=== PATIENT | female | born 1935 | race Two or more races ===

== ENCOUNTER 2022-05-30 12:43 | Inpatient (IN) | payer MEDICARE, OTHER ==
[~2022-05-30] VITALS: Ht 144.8 cm; Wt 51.3 kg
--- NOTE | 2022-05-30 12:50 | NUR ---
TO ER BED 11. SHANIA WATSON C/O LOWER ABDOMINAL PAIN SINCE LAST NIGHT. ATTACHED TO MONITOR, VITALS ARE WITHIN NORMAL LIMITS, NO RESP DISTRESS NOTED ON ROOMA IR. PROVIDED WITH WARM BLANKET FOR COMFORT. AWAITIN D ORDERS.
--- NOTE | 2022-05-30 12:55 | NUR ---
IV ESTABLIHSED L AC 20G. LABS DRAWN AND COLLECTED AT BEDSIDE.
[2022-05-30] MEDS ORDERED: SENN-261 PO (13:07)
[2022-05-30] MEDS ORDERED: ACET-868 PO (13:07)
[2022-05-30] MEDS ORDERED: POLY15DR40 EACHEYE (13:07)
[2022-05-30] MEDS ORDERED: DOCU-141 PO (13:07)
[2022-05-30] MEDS ORDERED: CLON0.1T PO (13:07)
[2022-05-30] MEDS ORDERED: LISI40TA13 PO (13:07)
[2022-05-30] MEDS ORDERED: AMLO-212 PO (13:07)
[2022-05-30] MEDS ORDERED: MULT-447 PO (13:07)
[2022-05-30 13:10] LABS: BASOPHILS % (AUTO) 0.2 % (0.0-2.0); EOSINOPHILS % (AUTO) 1.4 % (0.0-6.0); HEMATOCRIT 40 % (33-45); HEMOGLOBIN 13.6 g/dL (11.5-14.8); LYMPHOCYTES # (AUTO) 1.3 K/uL (0.8-4.8); LYMPHOCYTES % (AUTO) 10.5 % (20.0-44.0); MEAN CORPUSCULAR HGB CONC 34 g/dl (31.0-36.0); MEAN CORPUSCULAR VOLUME 94 fL (82-100); MONOCYTES # (AUTO) 1.4 K/uL (0.1-1.30); MONOCYTES % (AUTO) 10.7 % (2.0-12.0); NEUTROPHILS # (AUTO) 9.9 K/uL (1.8-8.9); NEUTROPHILS % (AUTO) 77.2 % (43.0-81.0); PLATELET COUNT (AUTO) 303 K/uL (150-450); RED BLOOD CELL COUNT(AUTO) 4.25 MIL/uL (4.0-5.2); WHITE BLOOD COUNT (AUTO) 12.8 K/uL (4.3-11.0)
[2022-05-30 14:28] LABS: CALCIUM, SERUM 9.3 mg/dL (8.5-10.1); CARBON DIOXIDE 29 mmol/L (21-32); CHLORIDE 98 mmol/L (98-107); CREATININE 0.4 mg/dL (0.6-1.3); GLUCOSE 111 mg/dL (74-106); POTASSIUM 3.5 mmol/L (3.5-5.1); SODIUM SERUM 134 mmol/L (136-145); UREA NITROGEN, BLOOD 13 mg/dL (7-18)
[2022-05-30] MEDS ORDERED: MORPHINE SULFATE INJ 2 MG/ML DISP.SYRIN ONE (14:29)
[2022-05-30] MEDS ORDERED: PIPERACILLIN /TAZOBACTAM 3.375 G in IV D5W 50 ML IV ONE (14:30)
[2022-05-30] MEDS ORDERED: MORPHINE SULFATE INJ 2 MG/ML DISP.SYRIN IV ONE (14:30)
--- NOTE | 2022-05-30 14:32 | NUR ---
CALLED NURSING SUP REGARDING PT BED
--- NOTE | 2022-05-30 14:38 | NUR ---
COVID TEST COLLECTED AND SENT
[2022-05-30 15:17] LABS: ALBUMIN 3.8 g/dL (3.4-5.0)
[2022-05-30 15:37] LABS: ALANINE AMINOTRANSFERASE 19 U/L (12-78); ALKALINE PHOSPHATASE 102 U/L (46-116); ASPARTATE AMINOTRANSFERASE 19 U/L (15-37); BILIRUBIN,DIRECT 0.2 mg/dL (0.0-0.2); BILIRUBIN,TOTAL 0.8 mg/dL (0.2-1.0); TOTAL PROTEIN, SERUM 7.2 g/dL (6.4-8.2)
--- NOTE | 2022-05-30 15:52 | NUR ---
room 310-1
--- NOTE | 2022-05-30 15:57 | NUR ---
REPORT GIVEN TO KEELY FOR BANDAR
--- NOTE | 2022-05-30 15:57 | NUR ---
AWAITING COVID RESULT TO TRANFER PT UP TO THE FLOOR
[2022-05-30] MEDS ORDERED: MAGNESIUM HYDROXIDE 30 ML UDC PO PRN (16:00)
[2022-05-30] MEDS ORDERED: ONDANSETRON HCL/PF 4 MG/2 ML VIAL IVP PRN (16:00)
[2022-05-30] MEDS ORDERED: MAG HYDROX/AL HYDROX/SIMETH 30 ML UDC PO PRN (16:00)
[2022-05-30] MEDS ORDERED: ACETAMINOPHEN 325 MG TABLET PO PRN (16:00)
[2022-05-30] MEDS ORDERED: ZOLPIDEM TARTRATE 5 MG TABLET PO PRN (16:00)
[2022-05-30] MEDS ORDERED: Z GUARD REMEDY 4 OZ OINT TP PRN (16:00)
--- NOTE | 2022-05-30 16:28 | NUR ---
DAUGHTER HUMBETRO LOIDA [phone]
--- NOTE | 2022-05-30 17:01 | NUR ---
PT TRANSFERED TO [facility] FLOOR IN STABLE CONDITION
[2022-05-30] MEDS: DOCUSATE SODIUM 100 MG CAPSULE PO SCH (17:29)
[2022-05-30] MEDS: LISINOPRIL (20MG) 20 MG TABLET PO SCH (17:30)
[2022-05-30] MEDS: AMLODIPINE BESYLATE 5 MG TABLET PO SCH (17:30)
[2022-05-30] MEDS: CLONIDINE HCL 0.1 MG TABLET PO SCH (17:30)
[2022-05-30] MEDS: HYDROCODONE/APAP 5/325MG TABLET PO PRN (17:31)
--- NOTE | 2022-05-30 17:50 | NUR ---
RN ADMITTING NOTES PATIENT ARRIVED TO UNIT ACCOMPANIED BY 1 ED STAFF [facility]IA [facility]. PATIENT HELPED INTO BED, A/Ox3-4 TONGAN SPEAKING. STABLE ON ROOM AIR NO S/S OF RESPIRATORY DISTRESS. IV ACCESS ON LAC #20G, INTACT AND PATENT. DAUGHTER AT BEDSIDE. V/S TAKEN, STABLE. FULL BODY ASSESSMENT DONE: CARDIAC ALL HEART SOUNDS PRESENT AND WNL, RESPIRATORY LUNGS CLEAR,, GI/ CONTINENT, ABDOMINAL TENDER, SOME PAIN NOTED WHEN PRESSED DOWN ON ABDOMEN, SKIN IS INTACT. PATIENT ORIENTED TO ROOM AND CALL LIGHT. WILL CONTINUE TO MONITOR FOR ANY BANDAR. CHARGE NURSE AND MD AWARE OF ADMISSION.
[2022-05-30] MEDS ORDERED: PIPERACILLIN /TAZOBACTAM 3.375 G in IV D5W 50 ML IV SCH (18:00)
[2022-05-30 18:09] VITALS: BP 135/83
--- NOTE | 2022-05-30 18:53 | NUR ---
MS RN CLOSING NOTES PATIENT IN BED RESTING, STABLE ON ROOM AIR NO S/S OF RESPIRATORY DISTRESS OR DISCOMFORT. PATIENT IS A/O x3-4, [place] SPEAKING. IV ACCESS LAC #20G. INTACT AND PATENT. NO S/S OF CARDIAC DISTRESS OR DISCOMFORT. SKIN INTACT. CONTINENT USES BEDPAN OR DIAPER. ALL PRESCRIBED MEDICATION ADMINISTERED. SAFETY MEASURES MAINTAINED: BED IN LOWEST POSITION AND LOCKED, SIDE RAILS UP x2, CALL LIGHT WITHIN REACH, BED ALARM ON, HOB ELEVATED. WILL ENDORSE TO NEXT SHIFT ANY BANDAR.
--- NOTE | 2022-05-30 19:41 | NUR ---
RN OPENING NOTE PATIENT IN BED AWAKE. A/OX3. NO S/S OF DISTRESS, BREATHING W/O DIFFICULTY ON ROOM AIR. LAC #20 SL INTACT AND PATENT. SAFETY MEASURES IN PLACE: BED LOCKED AND AT LOWEST POSITION, RAILS UP X2, CALL ALMONTE WITHIN REACH. WILL CONTINUE TO MONITOR PATIENT.
[2022-05-30 20:18] LABS: LIPASE 52 U/L (73-393)
[2022-05-30 20:38] VITALS: BP_SYST 102; BP_SYST 98; BP_DIAS 60
[2022-05-30] MEDS: SENNOSIDES 8.6 MG TABLET PO SCH (21:35)
[2022-05-30] MEDS: PIPERACILLIN /TAZOBACTAM 3.375 G in IV D5W 100 ML IV SCH (23:12)
[2022-05-31 06:37] LABS: BASOPHILS % (AUTO) 0.5 % (0.0-2.0); EOSINOPHILS % (AUTO) 1.1 % (0.0-6.0); HEMATOCRIT 36 % (33-45); LYMPHOCYTES # (AUTO) 1.4 K/uL (0.8-4.8); LYMPHOCYTES % (AUTO) 13.6 % (20.0-44.0); MEAN CORPUSCULAR HGB CONC 36 g/dl (31.0-36.0); MEAN CORPUSCULAR VOLUME 93 fL (82-100); MONOCYTES # (AUTO) 1.6 K/uL (0.1-1.30); MONOCYTES % (AUTO) 15.4 % (2.0-12.0); NEUTROPHILS # (AUTO) 7.2 K/uL (1.8-8.9); NEUTROPHILS % (AUTO) 69.4 % (43.0-81.0); PLATELET COUNT (AUTO) 269 K/uL (150-450); RED BLOOD CELL COUNT(AUTO) 3.91 MIL/uL (4.0-5.2); WHITE BLOOD COUNT (AUTO) 10.3 K/uL (4.3-11.0)
--- NOTE | 2022-05-31 06:48 | NUR ---
RN CLOSING NOTE PATIENT ASLEEP IN BED. A/OX3. NO S/S OF DISTRESS, BREATHING W/O DIFFICULTY ON ROOM AIR. RAC #20 SL INTACT AND PATENT. SAFETY MEASURES IN PLACE: BED LOCKED AND AT LOWEST POSITION, RAILS UP X2, CALL ALMONTE WITHIN REACH. WILL ENDORSE TO NEXT SHIFT FOR CONTINUITY OF CARE.
[2022-05-31 06:59] LABS: ALANINE AMINOTRANSFERASE 18 U/L (12-78); ALBUMIN 3.3 g/dL (3.4-5.0); ALKALINE PHOSPHATASE 84 U/L (46-116); ASPARTATE AMINOTRANSFERASE 13 U/L (15-37); BILIRUBIN,TOTAL 1.1 mg/dL (0.2-1.0); CALCIUM, SERUM 8.6 mg/dL (8.5-10.1); CARBON DIOXIDE 29 mmol/L (21-32); CHLORIDE 98 mmol/L (98-107); CREATININE 0.5 mg/dL (0.6-1.3); GLUCOSE 97 mg/dL (74-106); POTASSIUM 3.4 mmol/L (3.5-5.1); SODIUM SERUM 133 mmol/L (136-145); TOTAL PROTEIN, SERUM 6.6 g/dL (6.4-8.2); UREA NITROGEN, BLOOD 16 mg/dL (7-18)
--- NOTE | 2022-05-31 07:30 | NUR ---
RN OPENING NOTE RECEIVED PATIENT IN BED AWAKE. A/OX3. ROOM AIR WITH NO SOB OR DISTRESS NOTED , NO C/O OF PAIN AND DISCOMFORT NOTED AT THIS TIME . LAC #20 SL INTACT AND PATENT. SAFETY MEASURES IN PLACE: BED LOCKED AND AT LOWEST POSITION, RAILS UP X2, CALL ALMONTE WITHIN REACH. WILL CONTINUE TO MONITOR PATIENT.
[2022-05-31] MEDS: PIPERACILLIN /TAZOBACTAM 3.375 G in IV D5W 100 ML IV SCH ×3 (08:21→23:22)
[2022-05-31] MEDS: PANTOPRAZOLE 40 MG TABLET.DR PO SCH (08:24)
[2022-05-31 09:40] LABS: BASOPHILS % (MANUAL) 0 % (0.0-2.0); EOSINOPHILS % (MANUAL) 1 % (0-4); LYMPHOCYTES % (MANUAL) 11 % (16-48); MONOCYTES % (MANUAL) 18 % (0-11.0); NEUTROPHILS % (MANUAL) 70 (42-76)
[2022-05-31] MEDS ORDERED: POTASSIUM CHLORIDE 20 MEQ TAB.PRT.SR PO SCH (10:00)
[2022-05-31] MEDS: AMLODIPINE BESYLATE 5 MG TABLET PO SCH ×2 (10:01→18:11)
[2022-05-31] MEDS: LISINOPRIL (20MG) 20 MG TABLET PO SCH ×2 (10:01→18:12)
[2022-05-31] MEDS: DOCUSATE SODIUM 100 MG CAPSULE PO SCH ×2 (10:01→18:10)
[2022-05-31] MEDS: CLONIDINE HCL 0.1 MG TABLET PO SCH ×2 (10:02→18:12)
[2022-05-31] MEDS ORDERED: POTASSIUM CHLORIDE 10 MEQ TABLET.SA PO ONE (13:00)
--- NOTE | 2022-05-31 14:15 | NUR ---
RN NOTES PATIENT WENT TO A PROCEDURE FOR NUCLEAR MEDICINE HEPATOBILIARY SCAN
--- NOTE | 2022-05-31 17:00 | NUR ---
RN NOTES PATIENT WENT TO A PROCEDURE AGAIN FOR REPEAT NM HEPATOBILIARY SCAN
[2022-05-31] MEDS: IV D5/0.45 NACL 1,000 ML IV PRN (17:12)
--- NOTE | 2022-05-31 18:54 | NUR ---
MS RN CLOSING NOTES PATIENT ON BED AWAKE. A/OX3. ROOM AIR WITH NO SOB OR DISTRESS NOTED , NO C/O OF PAIN AND DISCOMFORT NOTED AT THIS TIME . LAC #20 SL INTACT AND PATENT. DUE MEDS AND IV ATB GIVEN ORDERED , PROCEDURE DONE TODAY NUCLEAR MEDICINE HEPATOBILIARY SCAN , SAFETY MEASURES IN PLACE: BED LOCKED AND AT LOWEST POSITION, RAILS UP X 2 ENDORSED TO NEXT SHIFT .
--- NOTE | 2022-05-31 19:15 | NUR ---
MS RN OPENING NOTES: RECEIVED PATIENT IN BED, ASLEEP, EASILY AROUSABLE. NO S/S OF DISTRESS NOTED. NO COMPLAIN OF PAIN. CALL LIGHT WITHIN REACH. BED ALARM ON. BED IN LOWEST AND LOCKED POSITION. HOB ELEVATED AT ALL TIMES. HIDA SCAN DONE TODAY.
[2022-05-31 20:00] VITALS: BP 94/70
[2022-05-31] MEDS: SENNOSIDES 8.6 MG TABLET PO SCH (21:30)
[2022-05-31] MEDS: ACETAMINOPHEN 325 MG TABLET PO PRN (21:30)
[2022-06-01] MEDS: PIPERACILLIN /TAZOBACTAM 3.375 G in IV D5W 100 ML IV SCH ×3 (06:18→23:25)
[2022-06-01 06:42] LABS: BASOPHILS # (AUTO) 0.1 K/uL (0.0-0.2); BASOPHILS % (AUTO) 0.6 % (0.0-2.0); EOSINOPHILS % (AUTO) 1.9 % (0.0-6.0); HEMATOCRIT 38 % (33-45); LYMPHOCYTES # (AUTO) 1.4 K/uL (0.8-4.8); LYMPHOCYTES % (AUTO) 11.4 % (20.0-44.0); MEAN CORPUSCULAR HGB CONC 34 g/dl (31.0-36.0); MEAN CORPUSCULAR VOLUME 95 fL (82-100); MONOCYTES # (AUTO) 1.7 K/uL (0.1-1.30); MONOCYTES % (AUTO) 13.7 % (2.0-12.0); NEUTROPHILS # (AUTO) 8.8 K/uL (1.8-8.9); NEUTROPHILS % (AUTO) 72.4 % (43.0-81.0); PLATELET COUNT (AUTO) 267 K/uL (150-450); RED BLOOD CELL COUNT(AUTO) 4.01 MIL/uL (4.0-5.2); WHITE BLOOD COUNT (AUTO) 12.2 K/uL (4.3-11.0)
[2022-06-01 06:57] LABS: CALCIUM, SERUM 8.7 mg/dL (8.5-10.1); CARBON DIOXIDE 26 mmol/L (21-32); CHLORIDE 100 mmol/L (98-107); CREATININE 0.5 mg/dL (0.6-1.3); GLUCOSE 106 mg/dL (74-106); MAGNESIUM 2.1 mg/dL (1.8-2.4); POTASSIUM 3.3 mmol/L (3.5-5.1); SODIUM SERUM 134 mmol/L (136-145); UREA NITROGEN, BLOOD 12 mg/dL (7-18)
--- NOTE | 2022-06-01 07:30 | NUR ---
MS RN OPENING NOTE RECEIVED PATIENT IN BED AWAKE , POLISH SPEAKING , A/OX3. ROOM AIR WITH NO SOB OR DISTRESS NOTED , NO C/O OF PAIN AND DISCOMFORT NOTED AT THIS TIME . LAC #20 SL INTACT AND PATENT AND WITH ON GOING IVATB OF ZOSYN 3.375 MG /100 ML RUNNING AT 25ML /HOUR , SAFETY MEASURES IN PLACE, BED IN LOWEST POSITION , SIDE RAILS UP X2, CALL ALMONTE WITHIN REACH. WILL CONTINUE TO MONITOR PATIENT.
[2022-06-01 08:00] VITALS: BP 133/70
[2022-06-01] MEDS: PANTOPRAZOLE 40 MG TABLET.DR PO SCH (08:31)
[2022-06-01] MEDS: LISINOPRIL (20MG) 20 MG TABLET PO SCH ×2 (09:13→17:30)
[2022-06-01] MEDS: AMLODIPINE BESYLATE 5 MG TABLET PO SCH ×2 (09:14→17:29)
[2022-06-01] MEDS: DOCUSATE SODIUM 100 MG CAPSULE PO SCH ×2 (09:14→17:30)
[2022-06-01] MEDS: CLONIDINE HCL 0.1 MG TABLET PO SCH ×2 (09:14→17:29)
[2022-06-01] MEDS ORDERED: POTASSIUM CHLORIDE 20 MEQ TAB.PRT.SR PO SCH (10:00)
[2022-06-01 16:08] VITALS: BP 144/82
--- NOTE | 2022-06-01 19:07 | NUR ---
MS RN CLOSING NOTE Patient in bed, resting comfortably. A/O x 3, Uzbek speaking, able to make needs known. On room air, breathing evenly and unlabored. No SOB or s/s of distress noted. IV access on LAC currently infusing Zosyn at 25 ml/hr. IV fluid is D5 1/2 NS at 75 ml/hr to infuse after IV antibiotic. Clear liquid diet maintained. All needs attended to. Due meds given. Safety measures maintained: bed in low, locked position; siderails up x 2; call light within reach. Will endorse to film processing shift supervisor nurse for BANDAR.
--- NOTE | 2022-06-01 19:15 | NUR ---
RN opening notes Pt is resting in bed comfortably. Pt is alert and orientedX3. Pt speaks Nicaraguan and able to make needs known. On room air. No S/S of distress noted. Iv site at LAc# 20 is clean, intact and infusing well abx zosyn. Safety precautions is maintained. Bed at low position, brakes locked, side rails upX3, hob elevated, bed alarm is on and call light is within reach. Will continue to monitor.
[2022-06-01 20:00] VITALS: BP 101/67
[2022-06-01] MEDS: SENNOSIDES 8.6 MG TABLET PO SCH (21:14)
[2022-06-02] MEDS: PIPERACILLIN /TAZOBACTAM 3.375 G in IV D5W 100 ML IV SCH ×3 (06:05→22:50)
[2022-06-02] MEDS: IV D5/0.45 NACL 1,000 ML IV PRN (06:06)
--- NOTE | 2022-06-02 06:40 | NUR ---
RN closing notes Pt is resting in bed comfortably. Pt is alert and orientedX3. Pt speaks [place] Citizen and able to make needs known. On room air. No S/S of distress noted. VS is stable. Routine meds were given as ordered. Iv site at LAc# 20 is clean, intact and infusing well abx zosyn. kept Pt clean, dry and comfortable. Safety precautions is maintained. Bed at low position, brakes locked, side rails upX3, hob elevated, bed alarm is on and call light is within reach. Will endorse to am nurse for BANDAR.
[2022-06-02 06:49] LABS: CALCIUM, SERUM 8.5 mg/dL (8.5-10.1); CARBON DIOXIDE 27 mmol/L (21-32); CHLORIDE 100 mmol/L (98-107); CREATININE 0.4 mg/dL (0.6-1.3); GLUCOSE 117 mg/dL (74-106); POTASSIUM 3.3 mmol/L (3.5-5.1); SODIUM SERUM 134 mmol/L (136-145); UREA NITROGEN, BLOOD 6 mg/dL (7-18)
--- NOTE | 2022-06-02 07:19 | NUR ---
MS RN OPENING NOTES RECEIVED PATIENT AWAKE IN BED. PATIENT IS ALERT AND ORIENTED TIMES 4. CITIZEN OF [place] SPEAKING. NO PAIN NOTED. NO SOB NOTED. NO DISTRESS NOTED. BREATHING EVEN AND UNLABORED. ON ROOM AIR TOLERATING WELL. IV ACCESS LAC # 20 INTACT AND PATENT. ON IV HYDRATION OF D51/2 NS AT 75 ML/HR. ALL SAFETY MEASURES IN PLACE. BED LOCKED IN THE LOWEST POSITION. CALL LIGHT AND TABLE IN EASY REACH. SIDE RAILS UP TIMES 2. WILL CONTINUE TO MONITOR.
[2022-06-02] MEDS: PANTOPRAZOLE 40 MG TABLET.DR PO SCH (07:42)
[2022-06-02 08:00] VITALS: BP 125/50
[2022-06-02] MEDS: DOCUSATE SODIUM 100 MG CAPSULE PO SCH ×2 (08:03→16:20)
[2022-06-02] MEDS: LISINOPRIL (20MG) 20 MG TABLET PO SCH ×2 (08:03→16:21)
[2022-06-02] MEDS: CLONIDINE HCL 0.1 MG TABLET PO SCH ×2 (08:04→16:21)
[2022-06-02] MEDS: AMLODIPINE BESYLATE 5 MG TABLET PO SCH ×2 (08:04→16:20)
[2022-06-02] MEDS ORDERED: POTASSIUM CHLORIDE 20 MEQ TAB.PRT.SR PO SCH (11:00)
[2022-06-02] MEDS: HYDROCODONE/APAP 5/325MG TABLET PO PRN (14:17)
[2022-06-02 16:00] VITALS: BP 116/55
--- NOTE | 2022-06-02 18:48 | NUR ---
MS RN CLOSING NOTES PATIENT AWAKE IN BED. PATIENT IS ALERT AND ORIENTED TIMES 4. DANISH SPEAKING. NO PAIN NOTED. NO SOB NOTED. NO DISTRESS NOTED. BREATHING EVEN AND UNLABORED. ON ROOM AIR TOLERATING WELL. IV ACCESS LAC # 20 INTACT AND PATENT. ON IV HYDRATION OF D51/2 NS AT 75 ML/HR. ALL DUE MEDS GIVEN ORDERED. ALL SAFETY MEASURES IN PLACE. BED LOCKED IN THE LOWEST POSITION. CALL LIGHT AND TABLE IN EASY REACH. SIDE RAILS UP TIMES 2. NPO STARTING MIDNIGHT. WILL ENDOTRSE FOR BANDAR..
[2022-06-02 20:00] VITALS: BP 128/75
[2022-06-02] MEDS: SENNOSIDES 8.6 MG TABLET PO SCH (22:17)
[2022-06-03] VITALS (10 sets, daily range): BP systolic 136–166; BP diastolic 85–101
[2022-06-03] MEDS: IV D5/0.45 NACL 1,000 ML IV PRN ×2 (02:21→18:15)
[2022-06-03 06:31] LABS: BASOPHILS % (AUTO) 0.4 % (0.0-2.0); EOSINOPHILS % (AUTO) 1.8 % (0.0-6.0); HEMATOCRIT 41 % (33-45); HEMOGLOBIN 14.8 g/dL (11.5-14.8); LYMPHOCYTES # (AUTO) 1.4 K/uL (0.8-4.8); LYMPHOCYTES % (AUTO) 12.9 % (20.0-44.0); MEAN CORPUSCULAR HGB CONC 36 g/dl (31.0-36.0); MEAN CORPUSCULAR VOLUME 91 fL (82-100); MONOCYTES # (AUTO) 0.8 K/uL (0.1-1.30); NEUTROPHILS # (AUTO) 8.1 K/uL (1.8-8.9); NEUTROPHILS % (AUTO) 76.9 % (43.0-81.0); PLATELET COUNT (AUTO) 348 K/uL (150-450); RED BLOOD CELL COUNT(AUTO) 4.51 MIL/uL (4.0-5.2); WHITE BLOOD COUNT (AUTO) 10.5 K/uL (4.3-11.0)
[2022-06-03] MEDS: PIPERACILLIN /TAZOBACTAM 3.375 G in IV D5W 100 ML IV SCH ×4 (06:57→23:07)
[2022-06-03 07:17] LABS: ALANINE AMINOTRANSFERASE 24 U/L (12-78); ALBUMIN 3.4 g/dL (3.4-5.0); ALKALINE PHOSPHATASE 106 U/L (46-116); ASPARTATE AMINOTRANSFERASE 15 U/L (15-37); BILIRUBIN,TOTAL 0.8 mg/dL (0.2-1.0); CALCIUM, SERUM 9.3 mg/dL (8.5-10.1); CARBON DIOXIDE 26 mmol/L (21-32); CHLORIDE 100 mmol/L (98-107); CREATININE 0.4 mg/dL (0.6-1.3); GLUCOSE 124 mg/dL (74-106); POTASSIUM 3.2 mmol/L (3.5-5.1); SODIUM SERUM 136 mmol/L (136-145); TOTAL PROTEIN, SERUM 7.9 g/dL (6.4-8.2); UREA NITROGEN, BLOOD 3 mg/dL (7-18)
[2022-06-03] MEDS: DOCUSATE SODIUM 100 MG CAPSULE PO SCH ×2 (09:06→17:00)
[2022-06-03] MEDS: PANTOPRAZOLE 40 MG TABLET.DR PO SCH (09:06)
[2022-06-03] MEDS: CLONIDINE HCL 0.1 MG TABLET PO SCH ×2 (09:06→17:00)
[2022-06-03] MEDS: AMLODIPINE BESYLATE 5 MG TABLET PO SCH ×2 (09:07→17:00)
[2022-06-03] MEDS: LISINOPRIL (20MG) 20 MG TABLET PO SCH ×2 (09:07→17:00)
[2022-06-03] MEDS: POTASSIUM CL. PREMIX PERIPHER. 50 ML IV SCH ×4 (11:23→18:04)
[2022-06-03] MEDS ORDERED: LIDOCAINE 1% INJ 50 ML MDV IJ ONE (14:04)
--- NOTE | 2022-06-03 14:30 | NUR ---
LAVINIA NOTES PT RECEIVED IN OR FOR CHOLECYSTOMY TUBE PLACEMENT . Addendum: 06/03/22 at 1707 by JANEL PALMER RN CORRECTION RECEIVED TIME TO OR 1630
[2022-06-03] MEDS ORDERED: IOHEXOL-300 100 ML VIAL IV ONE (14:45)
[2022-06-03] MEDS ORDERED: NALOXONE PREFILLED SYRINGE 2 MG/2 ML SYRINGE IV PRN (15:00)
[2022-06-03] MEDS ORDERED: FLUMAZENIL 0.5 MG VIAL IV PRN (15:00)
[2022-06-03] MEDS ORDERED: FENTANYL PF 250MCG/5ML AMPUL IV PRN (15:00)
[2022-06-03] MEDS ORDERED: MIDAZOLAM HCL 2 MG/2ML VIAL IV PRN (15:00)
--- NOTE | 2022-06-03 16:10 | NUR ---
RN NOTES PATIENT TRANSFERRED DOWN VIA BED TO OR FOR PROCEDURE.
--- NOTE | 2022-06-03 16:40 | NUR ---
RN NOTES ZOSYN 3.375G IV GIVEN IN OR PER RADIOLOGIST ORDER .UNABLE TO SCAN , PHARMACY NOTIFIED .
--- NOTE | 2022-06-03 17:34 | NUR ---
HEEL BUILDER MACHINE NOTED PT STABLE, VSS WNL, DRAIN TO THE RIGHT UPPER QUADRANT WITH 200 ML OF WHITISH , CLOUDY DRAINAGE INTACT, PT TRANSFERED TO ROOM 310-1 , IN STABLE CONDITION, REPORT GIVEN TO NAIMA KATE FOR CONTINUITY OF CARE .
--- NOTE | 2022-06-03 17:35 | NUR ---
RN NOTES RECEIVED PATIENT FROM OR NURSE IN STABLE CONDITION. VSS. DRAIN AT RIGHT UPPER QUADRANT WITH 200 ML OF DRAINAGE NOTED AT THIS TIME, INTACT. PATIENT DENIES HAVING PAIN. ON RA WITH BREATHING EVEN AND UNLABORED. SAFETY PRECAUTIONS IN PLACE. WILL CONTINUE TO MONITOR
--- NOTE | 2022-06-03 19:22 | NUR ---
RN NOTES REPORT GIVEN TO HOME CARE PROVIDER NURSE FOR BANDAR
--- NOTE | 2022-06-03 19:30 | NUR ---
MS RN OPENING NOTE RECEIVED PATIENT IN BED, NORWEGIAN SPEAKING. SEEMS CONFUSED. NO S/S OF APPARENT DISTRESS IN ROOM AIR. CHOLECYSTECTOMY DRAIN NOTED IN PLACE. R. FA #22 G RUNNING D5 1/2 NS @75MLS/HR. SAFETY IN PLACE. WILL CONTINUE WITH PATIENT'S PLAN OF CARE.
[2022-06-03] MEDS: MORPHINE SULFATE INJ 2 MG/ML DISP.SYRIN IV PRN (19:56)
[2022-06-03] MEDS: SENNOSIDES 8.6 MG TABLET PO SCH (21:48)
[2022-06-04] MEDS ORDERED: ASPIRIN 81 MG TAB.CHEW PO ONE (01:00)
[2022-06-04] MEDS: MORPHINE SULFATE INJ 2 MG/ML DISP.SYRIN IV PRN (01:46)
--- NOTE | 2022-06-04 01:59 | NUR ---
MS RN NOTE PATIENT VERY RESTLESS AND CONFUSED, PULLING LINES AND ALMOST PULLED OUT THE DRAIN IN PLACE. MADE TRAVEL COUNSELOR TONY PETERSON AWARE AND ORDERED SOFT BOTH WRIST RESTRAINTS FOR PATIENT SAFETY. WILL MONITOR.
[2022-06-04] MEDS: PIPERACILLIN /TAZOBACTAM 3.375 G in IV D5W 100 ML IV SCH ×3 (06:19→22:29)
[2022-06-04 06:37] LABS: CALCIUM, SERUM 8.8 mg/dL (8.5-10.1); CARBON DIOXIDE 25 mmol/L (21-32); CHLORIDE 100 mmol/L (98-107); CREATININE 0.6 mg/dL (0.6-1.3); GLUCOSE 160 mg/dL (74-106); POTASSIUM 3.4 mmol/L (3.5-5.1); SODIUM SERUM 135 mmol/L (136-145); UREA NITROGEN, BLOOD 7 mg/dL (7-18)
--- NOTE | 2022-06-04 07:00 | NUR ---
MS RN OPENING NOTES PATIENT LAYING IN BED, A/O X 1, CONFUSED. TOLERATING WELL ON ROOM AIR WITH NO S/S RESPIRATORY DISTRESS. CHOLECYSTECTOMY DRAIN IN PLACE DRAINING FLUID TO GRAVITY. R FA # 22 G IV CLEAN, INTACT, AND INFUSING D5 1/2 NS @ 75 ML/HR. BILATERAL SOFT WRIST RESTRAINTS IN PLACE WITH CIRCULATION, MOTOR FUNCTION, AND SENSATION INTACT DISTALLY X 2. SAFETY MEASURES IN PLACE: BED IN LOWEST LOCKED POSITION, SIDE RAILS UP X 2, CALL LIGHT WITHIN REACH. WILL CONTINUE TO MONITOR.
--- NOTE | 2022-06-04 07:32 | NUR ---
RN CLOSING NEEDS ATTENDED, ENDORSED TO MORNING SHIFT RN FOR CONTINUITY OF CARE.
[2022-06-04 08:00] VITALS: BP 113/67
[2022-06-04] MEDS: PANTOPRAZOLE 40 MG TABLET.DR PO SCH (08:06)
[2022-06-04] MEDS: LISINOPRIL (20MG) 20 MG TABLET PO SCH ×2 (09:00→17:41)
[2022-06-04] MEDS ORDERED: ASPIRIN 81 MG TAB.CHEW PO SCH (09:00)
[2022-06-04] MEDS: CLONIDINE HCL 0.1 MG TABLET PO SCH ×2 (09:00→17:00)
[2022-06-04] MEDS: AMLODIPINE BESYLATE 5 MG TABLET PO SCH ×2 (09:07→17:41)
[2022-06-04] MEDS: DOCUSATE SODIUM 100 MG CAPSULE PO SCH ×2 (09:07→17:41)
[2022-06-04] MEDS ORDERED: MIDAZOLAM HCL 2 MG/2ML VIAL IV ONE (10:21)
[2022-06-04] MEDS ORDERED: FENTANYL PF 100MCG/2ML AMPUL IV ONE (10:21)
[2022-06-04] MEDS ORDERED: POTASSIUM CHLORIDE 20 MEQ TAB.PRT.SR PO SCH (11:00)
[2022-06-04] MEDS: ACETAMINOPHEN 325 MG TABLET PO PRN (13:13)
--- NOTE | 2022-06-04 13:22 | NUR ---
650 MG PRN TYLENOL PO ADMINISTERED FOR ELEVATED TEMP (99.3 F)
[2022-06-04 16:00] VITALS: BP 135/75
[2022-06-04] MEDS: ENOXAPARIN SODIUM 40 MG/0.4 ML DISP.SYRIN SQ SCH (17:39)
--- NOTE | 2022-06-04 19:00 | NUR ---
MS RN CLOSING NOTES PATIENT LAYING IN BED, A/O X 1, CONFUSED. TOLERATING WELL ON ROOM AIR WITH NO S/S RESPIRATORY DISTRESS. CHOLECYSTECTOMY DRAIN IN PLACE DRAINING FLUID TO GRAVITY, 300 ML OUTPUT DURING SHIFT. R FA # 22 G IV CLEAN, INTACT, AND INFUSING D5 1/2 NS @ 75 ML/HR. BILATERAL SOFT WRIST RESTRAINTS IN PLACE WITH CIRCULATION, MOTOR FUNCTION, AND SENSATION INTACT DISTALLY X 2. SAFETY MEASURES IN PLACE: BED IN LOWEST LOCKED POSITION, SIDE RAILS UP X 2, CALL LIGHT WITHIN REACH. ALL NEEDS MET. WILL ENDORSE TO DOOR BUILDER FOR BANDAR.
[2022-06-04 20:00] VITALS: BP 147/80
--- NOTE | 2022-06-04 20:13 | NUR ---
RECEIVED PATIENT IN BED, ALERT/ORIENTED X1, MALAWIAN SPEAKING ONLY, NOT IN DISTRESS, STABLE ON ROOM AIR, NO COMPLAIN OF PAIN, TOLERATING CLEAR LIQUID DIET, RUQ DRAIN INTACT, DRAINING GREENISH LIQUID. BILATERAL WRIST RESTRAINTS IN PLACE. KEPT SAFE, WILL CONTINUE TO MONITOR.
[2022-06-04] MEDS: SENNOSIDES 8.6 MG TABLET PO SCH (22:27)
[2022-06-05] MEDS: HYDROCODONE/APAP 5/325MG TABLET PO PRN ×2 (03:41→16:46)
[2022-06-05] MEDS: IV D5/0.45 NACL 1,000 ML IV PRN (05:46)
--- NOTE | 2022-06-05 06:19 | NUR ---
S/P CHOLECYSTECTOMY 06/03/22, RUQ PIGTAIN DRAIN, INSERTION SITE IS INTACT, GREENISH DRAINAGE, 125 ML OUTPUT, MEDICATED WITH NORCO X1, ADEQUATE RELIEF, TOLERATING CLEAR LIQUID DIET, NO VOMITING, CONTINUE D5 1/2 NS AT 75 ML/HR, ADVANCE DIET TOLERATED.
[2022-06-05] MEDS: PIPERACILLIN /TAZOBACTAM 3.375 G in IV D5W 100 ML IV SCH ×3 (06:25→22:59)
[2022-06-05 06:45] LABS: CALCIUM, SERUM 8.5 mg/dL (8.5-10.1); CARBON DIOXIDE 27 mmol/L (21-32); CHLORIDE 101 mmol/L (98-107); CREATININE 0.5 mg/dL (0.6-1.3); GLUCOSE 136 mg/dL (74-106); POTASSIUM 3.3 mmol/L (3.5-5.1); SODIUM SERUM 136 mmol/L (136-145); UREA NITROGEN, BLOOD 7 mg/dL (7-18)
--- NOTE | 2022-06-05 07:00 | NUR ---
MS RN OPENING NOTES PATIENT LAYING IN BED, A/O X 1, CONFUSED. TOLERATING WELL ON ROOM AIR WITH NO S/S RESPIRATORY DISTRESS. CHOLECYSTECTOMY DRAIN IN PLACE DRAINING GREENISH FLUID TO GRAVITY. R FA # 22 G IV CLEAN, INTACT, AND INFUSING D5 1/2 NS @ 75 ML/HR. BILATERAL SOFT WRIST RESTRAINTS IN PLACE WITH CIRCULATION, MOTOR FUNCTION, AND SENSATION INTACT DISTALLY X 2. SAFETY MEASURES IN PLACE: BED IN LOWEST LOCKED POSITION, SIDE RAILS UP X 2, CALL LIGHT WITHIN REACH. WILL CONTINUE TO MONITOR.
[2022-06-05] MEDS: PANTOPRAZOLE 40 MG TABLET.DR PO SCH (08:15)
[2022-06-05 08:36] VITALS: BP 108/67
[2022-06-05] MEDS: CLONIDINE HCL 0.1 MG TABLET PO SCH ×2 (08:42→16:15)
[2022-06-05] MEDS: DOCUSATE SODIUM 100 MG CAPSULE PO SCH ×2 (08:42→16:14)
[2022-06-05] MEDS: AMLODIPINE BESYLATE 5 MG TABLET PO SCH ×2 (08:43→16:15)
[2022-06-05] MEDS: LISINOPRIL (20MG) 20 MG TABLET PO SCH ×2 (08:43→16:14)
[2022-06-05] MEDS ORDERED: POTASSIUM CHLORIDE 20 MEQ POWDER PACKET PO SCH (10:30)
[2022-06-05 16:09] VITALS: BP 174/90
[2022-06-05] MEDS: ENOXAPARIN SODIUM 40 MG/0.4 ML DISP.SYRIN SQ SCH (16:20)
--- NOTE | 2022-06-05 18:48 | NUR ---
MS RN CLOSING NOTES PATIENT LAYING IN BED, A/O X 1, CONFUSED. TOLERATING WELL ON ROOM AIR WITH NO S/S RESPIRATORY DISTRESS. CHOLECYSTECTOMY DRAIN IN PLACE DRAINING GREENISH FLUID TO GRAVITY. R FA # 22 G IV CLEAN, INTACT, AND INFUSING D5 1/2 NS @ 75 ML/HR. BILATERAL SOFT WRIST RESTRAINTS IN PLACE WITH CIRCULATION, MOTOR FUNCTION, AND SENSATION INTACT DISTALLY X 2. SAFETY MEASURES IN PLACE: BED IN LOWEST LOCKED POSITION, SIDE RAILS UP X 2, CALL LIGHT WITHIN REACH. ALL NEEDS MET. WILL ENDORSE TO PASTRY WRAPPER FOR BANDAR.
--- NOTE | 2022-06-05 19:35 | NUR ---
MS RN OPENING NOTE RECEIVED PATIENT AWAKE IN BED. A/O X 1, CONFUSED, AND CAMBODIAN SPEAKING. STABLE ON ROOM AIR. NO SOB OR S/S OF RESPIRATORY DISTRESS. BREATHING EVEN AND UNLABORED. CHOLECYSTECTOMY DRAIN IN PLACE DRAINING GREENISH FLUID TO GRAVITY. IV ACCESS RFA # 22 G, INTACT AND PATENT, RUNNING D5 1/2 NS @ 75 ML/HR. BILATERAL SOFT WRIST RESTRAINTS IN PLACE WITH CIRCULATION, MOTOR FUNCTION, AND SENSATION INTACT. SAFETY PRECAUTIONS IN PLACE. BED IN LOWEST LOCKED POSITION, SIDE RAILS UP X 2, HOB ELEVATED, AND CALL LIGHT AND TABLE WITHIN REACH. ALL NEEDS MET AT THIS TIME.
[2022-06-05 20:00] VITALS: BP 141/84
[2022-06-05] MEDS: SENNOSIDES 8.6 MG TABLET PO SCH ×2 (21:28→21:32)
--- NOTE | 2022-06-05 21:35 | NUR ---
RN NOTE PT REFUSED SENNA AT THIS TIME. TRIED TO EXPLAIN IMPORTANCE OF TAKING MEDICATION, BUT PT STILL REFUSED. RETURN MEDICATION BACK TO [facility].
[2022-06-06 06:38] LABS: CALCIUM, SERUM 8.7 mg/dL (8.5-10.1); CREATININE 0.6 mg/dL (0.6-1.3); POTASSIUM 3.5 mmol/L (3.5-5.1)
[2022-06-06] MEDS: PIPERACILLIN /TAZOBACTAM 3.375 G in IV D5W 100 ML IV SCH ×3 (06:43→22:04)
--- NOTE | 2022-06-06 06:58 | NUR ---
MS RN CLOSING NOTE PATIENT AWAKE IN BED. A/O X 2, CONFUSED AT TIMES, AND WELSH SPEAKING. STABLE ON ROOM AIR. NO SOB OR S/S OF RESPIRATORY DISTRESS. BREATHING EVEN AND UNLABORED. CHOLECYSTECTOMY DRAIN IN PLACE DRAINING GREENISH FLUID TO GRAVITY, DRAINED 200 CC THIS SHIFT. IV ACCESS RFA # 22 G, INTACT AND PATENT, RUNNING D5 1/2 NS @ 75 ML/HR. BILATERAL SOFT WRIST RESTRAINTS IN PLACE WITH CIRCULATION, MOTOR FUNCTION, AND SENSATION INTACT. ALL DUE MEDS GIVEN ORDERED. SAFETY PRECAUTIONS IN PLACE AT ALL TIMES. BED IN LOWEST LOCKED POSITION, SIDE RAILS UP X 2, HOB ELEVATED, AND CALL LIGHT AND TABLE WITHIN REACH. ALL NEEDS MET AT THIS TIME AND WILL ENDORSE TO ONCOMING NURSE FOR BANDAR.
--- NOTE | 2022-06-06 07:27 | NUR ---
RN OPENING NOTES RECEIVED PATIENT IN BED, AWAKE, A/O X2, VERBALLY RESPONSIVE, NO SIGNS OF ACUTE DISTRESS NOTED. ON [place] AIR, NO SOB NOTED, BREATHING EVEN AND UNLABORED. NOTED WITH IV ACCESS ON RIGHT FORE ARM #22G, INTACT AND PATENT WITH D5 1/2 NS @ 75ML/HR RUNNING. WITH CHOLECYSTECTOMY DRAIN ON RUQ INTACT AND DRAINING GREENISH FLUID VIA GRAVITY. PATIENT WITH LADAN SOFT WRIST RESTRAINTS TO PREVENT PULLING OUT LINES/TUBES. DENIES ANY PAIN AT THIS TIME. SAFETY MEASURE IN PLACE. BED IN LOWEST AND LOCKED POSITION, SIDE RAILS UP, CALL LIGHT PLACED WITHIN EASY REACH, WILL CONTINUE TO MONITOR PATIENT.
[2022-06-06] MEDS: DOCUSATE SODIUM 100 MG CAPSULE PO SCH ×2 (08:10→16:26)
[2022-06-06] MEDS: AMLODIPINE BESYLATE 5 MG TABLET PO SCH ×2 (08:10→16:26)
[2022-06-06] MEDS: PANTOPRAZOLE 40 MG TABLET.DR PO SCH (08:10)
[2022-06-06] MEDS: LISINOPRIL (20MG) 20 MG TABLET PO SCH ×2 (08:10→16:26)
[2022-06-06] MEDS: CLONIDINE HCL 0.1 MG TABLET PO SCH ×2 (08:11→16:26)
[2022-06-06 08:48] VITALS: BP 149/78
[2022-06-06] MEDS: IV D5/0.45 NACL 1,000 ML IV PRN (12:02)
[2022-06-06 16:12] VITALS: BP 150/82
[2022-06-06] MEDS: ENOXAPARIN SODIUM 40 MG/0.4 ML DISP.SYRIN SQ SCH (16:27)
--- NOTE | 2022-06-06 18:54 | NUR ---
RN CLOSING NOTES PATIENT ASLEEP IN BED, EASILY AROUSED. NO SIGNS OF ACUTE DISTRESS NOTED. NO C/O PAIN OR DISCOMFORT AT THIS TIME. REMAINS STABLE IN ROOM AIR, NO SOB NOTED, BREATHING EVEN AND UNLABORED. IV ACCESS ON RIGHT FORE ARM #22G, INTACT AND PATENT WITH D5 1/2 NS @ 75ML/HR RUNNING. WITH CHOLECYSTOSTOMY TUBE ON RUQ INTACT AND DRAINING GREENISH FLUID VIA GRAVITY WITH 100 ML OUTPUT THIS SHIFT. REMAINS WITH LADAN SOFT WRIST RESTRAINTS TO PREVENT PULLING OUT LINES/TUBES. ALL DUE MEDS GIVEN, TOLERATED WELL. SAFETY MEASURE IN PLACE. BED IN LOWEST AND LOCKED POSITION, SIDE RAILS UP, CALL LIGHT PLACED WITHIN EASY REACH, WILL ENDORSE TO NEXT SHIFT FOR CONTINUITY OF CARE.
--- NOTE | 2022-06-06 19:28 | NUR ---
MS RN OPENING NOTE RECEIVED PATIENT AWAKE IN BED. A/O X 2, CONFUSED AT TIMES, AND LITHUANIAN SPEAKING. STABLE ON ROOM AIR. NO SOB OR S/S OF RESPIRATORY DISTRESS. BREATHING EVEN AND UNLABORED. CHOLECYSTECTOMY DRAIN IN PLACE DRAINING GREENISH FLUID TO GRAVITY. IV ACCESS RFA # 22 G, INTACT AND PATENT, RUNNING D5 1/2 NS @ 75 ML/HR. BILATERAL SOFT WRIST RESTRAINTS IN PLACE WITH CIRCULATION, MOTOR FUNCTION, AND SENSATION INTACT. SAFETY PRECAUTIONS IN PLACE. BED IN LOWEST LOCKED POSITION, SIDE RAILS UP X 2, HOB ELEVATED, AND CALL LIGHT AND TABLE WITHIN REACH. ALL NEEDS MET AT THIS TIME.
[2022-06-06] MEDS: SENNOSIDES 8.6 MG TABLET PO SCH (22:00)
--- NOTE | 2022-06-07 06:26 | NUR ---
MS RN CLOSING NOTE PATIENT AWAKE IN BED. A/O X 2, CONFUSED AT TIMES, AND GEORGIAN SPEAKING. STABLE ON ROOM AIR. NO SOB OR S/S OF RESPIRATORY DISTRESS. BREATHING EVEN AND UNLABORED. CHOLECYSTECTOMY DRAIN IN PLACE DRAINING GREENISH FLUID TO GRAVITY, DRAINED 200 CC THIS SHIFT. IV ACCESS RFA # 22 G, INTACT AND PATENT, RUNNING D5 1/2 NS @ 75 ML/HR. BILATERAL SOFT WRIST RESTRAINTS IN PLACE WITH CIRCULATION, MOTOR FUNCTION, AND SENSATION INTACT. ALL DUE MEDS GIVEN ORDERED. SAFETY PRECAUTIONS IN PLACE AT ALL TIMES. BED IN LOWEST LOCKED POSITION, SIDE RAILS UP X 2, HOB ELEVATED, AND CALL LIGHT AND TABLE WITHIN REACH. ALL NEEDS MET AT THIS TIME AND WILL ENDORSE TO ONCOMING NURSE FOR BANDAR.
[2022-06-07] MEDS: PIPERACILLIN /TAZOBACTAM 3.375 G in IV D5W 100 ML IV SCH ×2 (06:43→16:02)
--- NOTE | 2022-06-07 07:40 | NUR ---
RN OPENING NOTE PATIENT RECEIVED IN BED & SLEEPING. A/OX2 AND MACANESE SPEAKING. NO S/SX OF RESPIRATORY DISTRESS OR C/O PAIN. CHOLECYSTECTOMY CURRENTLY INTACT AND DRAINING GREENISH LIKE FLUID INTO DRAINAGE BACK. IV ACCESS PATENT AND INTACT WITH NS FLOWING @ 75ML/HR. SOFT WRIST RESTRAINTS IN PLACE WITH NO S/SX OF INJURY. CIRCULATION, MOTOR FUNCTION SENSATION INTACT. SAFETY PRECAUTIONS INTACT WITH BED IN LOWEST POSITION AND LOCKED. SIDERAIL UP X2, CALL LIGHT WITHIN REACH. WILL CONTINUE TO MONITOR.
[2022-06-07] MEDS: PANTOPRAZOLE 40 MG TABLET.DR PO SCH (09:30)
[2022-06-07] MEDS: CLONIDINE HCL 0.1 MG TABLET PO SCH ×2 (09:30→18:09)
[2022-06-07] MEDS: LISINOPRIL (20MG) 20 MG TABLET PO SCH ×2 (09:31→18:09)
[2022-06-07] MEDS: AMLODIPINE BESYLATE 5 MG TABLET PO SCH ×2 (09:31→18:09)
[2022-06-07] MEDS: DOCUSATE SODIUM 100 MG CAPSULE PO SCH ×2 (09:31→18:10)
[2022-06-07] MEDS ORDERED: HYDR-4275 PO (13:42)
[2022-06-07] MEDS ORDERED: CEFT1VIA15 IV (13:42)
[2022-06-07] MEDS ORDERED: ASPI-1169 PO (13:42)
[2022-06-07 18:09] VITALS: BP 129/79
[2022-06-07] MEDS: ENOXAPARIN SODIUM 40 MG/0.4 ML DISP.SYRIN SQ SCH (18:11)
--- NOTE | 2022-06-07 18:55 | NUR ---
RN CLOSING NOTE PATIENT REMAINED IN BED AND A/O X 2. ENGLISH SPEAKING. NO S/SX OF DISTRESS OR PAIN OBSERVED OR REPORTED. S/P CHOLECYSTECTOMY WITH DRAIN IN PLACE AND FLOWING. CONTINUES TO DRAIN GREENISH FLUID TO GRAVITY. OUTPUT OF 100CC DURING SHIFT. IV ACCESS RFA INFILTRATED AND IMMEDIATELY TAKEN OUT. NEW IV INSERTED TO LFA 22G. INTACT AND PATENT. BILATERAL SOFT WRIST RESTRAINTS REMAIN IN PLACE WITH CIRCULATION, MOTOR FUNCTION, AND SENSATION INTACT. PATIENT SCHEDULED FOR DISCHARGE AND PICKUP TO BE TAKEN TO [facility] [place]. REPORT GIVEN TO VERNON. PICKUP SCHEDULED FOR 1999 ON 06/07/22. WILL ENDORSE TO ONCOMING NURSE. ALL DUE MEDS GIVEN ORDERED. SAFETY PRECAUTIONS IN PLACE AT ALL TIMES. BED IN LOWEST LOCKED POSITION, SIDE RAILS UP X 2, HOB ELEVATED, AND CALL LIGHT. WILL CONTINUE TO MONITOR.
--- NOTE | 2022-06-07 19:33 | NUR ---
RN OPENING NOTE PATIENT IN BED AND A/O X 2. LUXEMBOURGISH SPEAKING. NO S/SX OF DISTRESS OR PAIN OBSERVED OR REPORTED. S/P CHOLECYSTECTOMY WITH DRAIN IN PLACE AND FLOWING. CONTINUES TO DRAIN GREENISH FLUID TO GRAVITY. OUTPUT OF 100CC DURING SHIFT. IV ACCESS LFA 22G. INTACT AND PATENT. BILATERAL SOFT WRIST RESTRAINTS REMAIN IN PLACE WITH CIRCULATION, MOTOR FUNCTION, AND SENSATION INTACT. PATIENT SCHEDULED FOR DISCHARGE AND PICKUP TO BE TAKEN TO [facility]. REPORT GIVEN TO VERNON. PICKUP SCHEDULED FOR 1999 ON 06/07/22. SAFETY PRECAUTIONS IN PLACE AT ALL TIMES. BED IN LOWEST LOCKED POSITION, SIDE RAILS UP X 2, HOB ELEVATED, AND CALL LIGHT. WILL CONTINUE TO MONITOR.
--- NOTE | 2022-06-07 20:26 | NUR ---
rn notes pt left via ambulance in stable condition. paperwork given to emt. pt on no pain or discomfort at this time.
== END 2022-06-07 20:25 | DRG 446 ==
LOC: ER 13:01 → TRANSITION 15:35 → MED 16:44
PROVIDERS: ADMIT Legal Medicine; ATTEND Legal Medicine
PROC: 0F9430Z Drainage of Gallbladder with Drainage Device, Percutaneous Approach (ICD-10-PCS; principal; 2022-06-03)
DX: K81.0 Acute cholecystitis (principal); I10 Essential (primary) hypertension; F03.90 Unspecified dementia, unspecified severity, without behavioral disturbance, psychotic disturbance, mood disturbance, and anxiety; I25.10 Atherosclerotic heart disease of native coronary artery without angina pectoris; J45.909 Unspecified asthma, uncomplicated; M19.90 Unspecified osteoarthritis, unspecified site; Z20.822 Contact with and (suspected) exposure to COVID-19
CPT/HCPCS: 36415; 75989; 78226; 80048-TC; 80053-TC; 80076-TC; 83690-TC; 83735-TC; 85025-TC; 85730-TC; 87070-TC; 87081-TC; 87186-TC; 89051-TC; 97116-TC; 97530-TC; A4215; A9537; G0378; J1650; J2250; J2270; J2543; J3010; J3480; J3490; J7040; J7060; Q9967